=== PATIENT | female | born 1955 | race African-American/Black ===

== ENCOUNTER → 2016-04-24 | Outpatient (CLI) | payer OTHER ==
--- NOTE | 2016-04-24 14:02 | WOMENS IMAGING REPORT ---
EXAM DESCRIPTION: BILAT SCREENING MAMMO W/CAD COMPLETED DATE/TIME: 04/24/2016 9:51 am REASON FOR STUDY: BILAT SCREENING MAMMO (Z12.31 Z12.31 ENCNTR SCREEN MAMMOGRAM FOR MALIGNANT NEOPLA SM OF KEANU COMPARISON: 2008 to 2015 TECHNIQUE: Standard craniocaudal and mediolateral oblique views of each breast recorded using digita l acquisition. LIMITATIONS: None. FINDINGS: No masses, calcifications or architectural distortion. No areas of suspicion. Read with the assistance of CAD. .[facility] - R2 Cenova Version 1.3 .[facility] Imaging - R2 Cenova Version 1.3 .[facility] Imaging - R2 Cenova Version 2.4 .[facility] - R2 Cenova Version 2.4 .[facility] - R2 Crocheter Version 9.2 BREAST DENSITY: b. There are scattered areas of fibroglandular density. BIRAD: 1 NEGATIVE RECOMMENDATION: ROUTINE SCREENING COMMENT: PATIENT NOTIFIED BY LETTER. The [employer] recommends an annual screening mammogram for women aged 40 years or over. Each patient will receive a reminder prior to the anniversary date of her mammogram. The [employer] (ACR) has developed recommendations for screening MRI of the breast s in certain patient populations, to be used in conjunction with mammography. Breast MRI surveillanc e may be appropriate for women with more than 20% lifetime risk of developing breast cancer as deter mined by genetic testing, significant family history of the disease, or history of mantle radiation f or Hodgkins Disease. ACR Practice Guidelines 2008. TECHNICAL DOCUMENTATION: FINDING NUMBER: (1) ASSESSMENT: (1) JOB ID: [id number] [employer]- All Rights Reserved
== END ==
LOC: WI 09:24
PROVIDERS: ATTEND Specialist
DX: Z12.31 Encounter for screening mammogram for malignant neoplasm of breast (principal)
CPT/HCPCS: 77067; G0202

== ENCOUNTER → 2016-08-18 | Outpatient (CLI) | payer OTHER | LOC: RAD 15:18 | PROVIDERS: ATTEND Podiatrist Foot & Ankle Surgery | DX: M86.372 Chronic multifocal osteomyelitis, left ankle and foot (principal) | CPT/HCPCS: 82565; 73720; A9576 ==

== ENCOUNTER → 2016-10-18 | Outpatient (CLI) | payer OTHER ==
--- NOTE | 2016-10-18 10:12 | RADIOLOGY REPORT (SQ) ---
EXAM DESCRIPTION: MRI LT LOWER EXTREMITY COMBO COMPLETED DATE/TIME: 10/18/2016 9:40 am REASON FOR STUDY: OSTEOMYELITIS (M86.372) M86.372 CHRONIC MULTIFOCAL OSTEOMYELITIS, LEFT ANKLE AND RAUL COMPARISON: 08/18/2016. TECHNIQUE: Multiplanar imaging of the left forefoot to include T1-weighted, postcontrast T1-weighted , and T2-weighted images. CONTRAST TYPE AND DOSE: 10 mL Prohance. RENAL FUNCTION: Creatinine 0.9 LIMITATIONS: None. FINDINGS: BONE MARROW: Chronic deformity in the distal great toe metatarsal. Previously, mild edema was noted here. Current study suggests edema has essentially resolved. Mild deformity of the 2nd m etatarsal as well. Marrow signal in the remaining metatarsals and toes is generally normal. SOFT TISSUES: Soft tissue thickening with loss of the subcutaneous fat and superficial ulcer underlie s the great toe, centered at roughly the MTP joint. No drainable collections here. OTHER: No other significant finding. IMPRESSION: 1. Chronic soft tissue findings, plantar ulcer underlying the great toe MTP joint. Whil e there is deformity of the 1st and 2nd metatarsal heads, no suggestion of osteomyelitis (no progress celestino bone loss or worrisome edema) on today's study. TECHNICAL DOCUMENTATION: JOB ID: [id number] [employer]- All Rights Reserved
== END ==
LOC: RAD 07:49
PROVIDERS: ATTEND Podiatrist Foot & Ankle Surgery
DX: M86.372 Chronic multifocal osteomyelitis, left ankle and foot (principal)
CPT/HCPCS: 82565; 73720; A9576

== ENCOUNTER → 2017-05-31 | Outpatient (CLI) | payer OTHER ==
--- NOTE | 2017-05-31 14:25 | WOMENS IMAGING REPORT ---
EXAM DESCRIPTION: 3D SCREENING MAMMO BILAT COMPLETED DATE/TIME: 05/31/2017 12:07 pm REASON FOR STUDY: ROUTINE SCREENING; Z12.31 Z12.31 ENCNTR SCREEN MAMMOGRAM FOR MALIGNANT NEOPLASM O F KEANU COMPARISON: 2011 to 2016 TECHNIQUE: Standard craniocaudal and mediolateral oblique views of each breast recorded using digita l acquisition and breast tomosynthesis. LIMITATIONS: None. FINDINGS: No masses, calcifications or architectural distortion. No areas of suspicion. Read with the assistance of CAD. .[facility] - R2 Cenova Version 1.3 .[facility] Imaging - R2 Cenova Version 1.3 .[facility] Imaging - R2 Cenova Version 2.4 .[facility] [place] R2 Cenova Version 2.4 .[facility] - R2 [employer] Manager Version 9.2 IMPRESSION: NORMAL MAMMOGRAM. BIRADS 1. BREAST DENSITY: b. There are scattered areas of fibroglandular density. BIRAD: 1 NEGATIVE RECOMMENDATION: ROUTINE SCREENING COMMENT: The patient has been notified of the results by letter per SA requirements. Additional no tification policies are in place for contacting patient with suspicious or incomplete findings. Quality ID #225: The [employer] recommends an annual screening mammogram for women aged 40 years or over. This facility utilizes a reminder system to ensure that all patients receive reminder letters, and/or direct phone calls for appointments. This includes reminders for routine scr eening mammograms, diagnostic mammograms, or other Breast Imaging Interventions when appropriate. Th is patient will be placed in the appropriate reminder system. The [employer] (ACR) has developed recommendations for screening MRI of the breast s in certain patient populations, to be used in conjunction with mammography. Breast MRI surveillanc e may be appropriate for women with more than 20% lifetime risk of developing breast cancer as deter mined by genetic testing, significant family history of the disease, or history of mantle radiation f or Hodgkins Disease. ACR Practice Guidelines 2008. DBT Technology DBT is a type of tomographic mammography. With conventional mammography, overlapping breast tissue ma y make lesions difficult to detect, even with good compression. DBT uses an x-ray tube that rotates a round the breast, taking images at different angles. These images are then combined to create thin sl ices of the breast that the radiologist can view as a 3D reconstruction. The [employer] [place] unit can perform full-field digital mammograms (2D imaging); or DBT (3D imaging); or both, in a combination mode that quickly performs both the mammogram and the tomosynthesis scan while the breast is still compressed. PQRS 6045F: Fluoroscopic imaging is not utilized for breast tomosynthesis. TECHNICAL DOCUMENTATION: FINDING NUMBER: (1) ASSESSMENT: (1) JOB ID: [id number] [employer]- All Rights Reserved
== END ==
LOC: WI 10:59
PROVIDERS: ATTEND Specialist
DX: Z12.31 Encounter for screening mammogram for malignant neoplasm of breast (principal)
CPT/HCPCS: 77063; 77067

== ENCOUNTER → 2017-07-24 | Outpatient (CLI) | payer OTHER ==
--- NOTE | 2017-07-24 15:52 | RADIOLOGY REPORT (SQ) ---
EXAM DESCRIPTION: FOOT RIGHT COMPLETE COMPLETED DATE/TIME: 07/24/2017 3:10 pm REASON FOR STUDY: NON-PRS CHRONIC ULCER OTH PRT RIGHT FOOT W FAT LAYER EXPOSED L97.512 NON-PRS POKE IN PATRICIA ULCER OTH PRT RIGHT FOOT W FAT LAYER COMPARISON: None. NUMBER OF VIEWS: Three views. TECHNIQUE: AP, lateral and oblique radiographic images acquired of the right foot. LIMITATIONS: None. FINDINGS: MINERALIZATION: Normal. BONES: Hallux valgus with prominent bunion. Surgical changes involving the head of the 2nd metatarsa l. JOINTS: No effusions. SOFT TISSUES: A prominent soft tissue ulcer is seen overlying the 5th metatarsal phalangeal joint. N o evidence of osteomyelitis is seen. OTHER: No other significant finding. IMPRESSION: There is no evidence of osteomyelitis. Findings as described. TECHNICAL DOCUMENTATION: JOB ID: [id number] [employer]- All Rights Reserved Reading location - IP/workstation name: [email or web address]
== END ==
LOC: OD 14:53
PROVIDERS: ATTEND Preventive Medicine Undersea and Hyperbaric Medicine
DX: L97.512 Non-pressure chronic ulcer of other part of right foot with fat layer exposed (principal)

== ENCOUNTER → 2017-08-03 | Day surgery (SDC) | payer OTHER ==
[~2017-08-03] MED LIST: DAPTOMYCIN 500 MG in NORMAL SALINE 50 ML IV ONE; NORMAL SALINE 10 ML SDV (AFTER EACH USE) IV PRN; NORMAL SALINE 10 ML SDV (SCHEDULED) IV SCH
--- NOTE | 2017-08-03 12:07 | RADIOLOGY REPORT (SQ) ---
EXAM DESCRIPTION: PICC INSERTION; U/S GUIDE FOR VASCULAR ACCESS; FLUORO/CV PLACEMENT COMPLETED DATE/TIME: 08/03/2017 10:47 am REASON FOR STUDY: IV ANTIBIOTICS; IV ACCESS; IV ABX L97.512 NON-PRS CHRONIC ULCER OTH PRT RIGHT RAUL T W FAT LAYER E11.621 TYPE 2 DIABETES MELLITUS WITH FOOT ULCER COMPARISON: None. FLUOROSCOPY TIME: 29 seconds 2 images saved to PACS. TECHNIQUE: Fluoroscopic and ultrasound guided PICC placement. LIMITATIONS: None. PROCEDURE: After written consent and assessment were obtained, the patient was brought into the fluo roscopy room and place supine on the table. Ultrasound was used on the patient's left arm for PICC a ccess. The left arm was prepped and draped in a sterile fashion along with the ultrasound probe. The entry site was anesthetized with 1% lidocaine. A 21 gauge 7 cm needle was advanced through the skin a nd into the basilic vein under live ultrasound guidance. An ultrasound image was saved to PACS confi rming access site. A .018 guide wire was then inserted through the needle and into the venous system . The needle was the removed and an 11 blade scalpel was used to make a 1cm skin incision. A 5 fr pe el-away sheath was advanced over the wire and into the venous system. A measurement was then made usi ng the existing wire and live fluoroscopic guidance. The wire was then removed and the trimmed. The P ICC was advanced through the peel-away sheath and into the venous system. The peel-away sheath was re moved and the catheter was adhered to the patients arm with a stat lock. The catheter was then aspira jose and flushed and a sterile bandage was placed over the access site. A fluoroscopic spot image was saved to PACS confirming the catheter tip within the superior vena cava. IMPRESSION: SUCCESSFUL PLACEMENT OF A 5 FR DUAL LUMEN 42 CM PICC IN THE LEFT BASILIC VEIN. COMMENT: Patient medication list reviewed: Yes- Quality ID# 130:Eligible professional attests to doc umenting in the medical record they obtained, updated, or reviewed the patient's current medications. . Quality ID 145: Final reports for procedures using fluoroscopy that document radiation exposure jorge rex, or exposure time and number of fluorographic images (if radiation exposure indices are not avail able) Quality ID #76: The patient was prepped and draped using maximum sterile barrier technique including cap, mask, sterile gown, sterile gloves, a large sterile sheet, hand hygiene, and 2% Chlorhexidine fo r cutaneous antisepsis. When ultrasound is used, sterile ultrasound techniques are followed requiring sterile gel and sterile probes. TECHNICAL DOCUMENTATION: JOB ID: [id number] [employer]- All Rights Reserved Reading location - IP/workstation name: [facility]
[2017-08-03 13:02] VITALS: BP 131/72
== END ==
LOC: RAD 09:46
PROVIDERS: ATTEND Preventive Medicine Undersea and Hyperbaric Medicine
DX: L97.512 Non-pressure chronic ulcer of other part of right foot with fat layer exposed (principal); E11.621 Type 2 diabetes mellitus with foot ulcer
CPT/HCPCS: 96365; 36569; 77001; 76937; J0878; J1642

== ENCOUNTER → 2017-08-07 | Day surgery (SDC) | payer OTHER ==
--- NOTE | 2017-08-07 15:58 | RADIOLOGY REPORT (SQ) ---
EXAM DESCRIPTION: PICC LINE REPLACEMENT; FLUORO/CV PLACEMENT COMPLETED DATE/TIME: 08/07/2017 11:45 am REASON FOR STUDY: NON-PRS CHRONIC ULCER OTH PRT RIGHT FOOT W FAT LAYER EXPOSED (L97.512); PICC PULLE D OUT/REPLACEMENT L97.512 NON-PRS CHRONIC ULCER OTH PRT RIGHT FOOT W FAT LAYER COMPARISON: AP chest 12/03/2014 FLUOROSCOPY TIME: 18 seconds 1 digital chest image and 1 ultrasound images saved to PACS. TECHNIQUE: Fluoroscopic and ultrasound guided PICC placement. LIMITATIONS: None. PROCEDURE: After written consent and assessment were obtained, the patient was brought into the fluo roscopy room and place supine on the table. Ultrasound evaluation of potential access sites were perf ormed. After successfully identifying a patent left basilic, the left arm was prepped and draped in a sterile fashion along with the ultrasound probe. The entry site was anesthetized with 1% lidocaine. A 21 gauge 7 cm needle was advanced through the skin and into the basilic vein under live ultrasound guidance. An ultrasound image was saved to PACS confirming access site. A .018 guide wire was then inserted through the needle and into the venous system. The needle was the removed and an 11 blade sc alpel was used to make a 1cm skin incision. A 5 fr peel-away sheath was advanced over the wire and i nto the venous system. A measurement was then made using the existing wire and live fluoroscopic guid ance. The wire was then removed and the trimmed. The PICC was advanced through the peel-away sheath a nd into the venous system. The peel-away sheath was removed and the catheter was adhered to the patie nts arm with a stat lock. The catheter was then aspirated and flushed and a sterile bandage was place d over the access site. A fluoroscopic spot image was saved to PACS confirming the catheter tip with in the superior vena cava. IMPRESSION: SUCCESSFUL PLACEMENT OF A 5 FR DUAL LUMEN 42 CM PICC IN THE left basilic VEIN. COMMENT: Patient medication list reviewed: Yes- Quality ID# 130:Eligible professional attests to doc umenting in the medical record they obtained, updated, or reviewed the patient's current medications. . Quality ID 145: Final reports for procedures using fluoroscopy that document radiation exposure jorge rex, or exposure time and number of fluorographic images (if radiation exposure indices are not avail able) Quality ID #76: The patient was prepped and draped using maximum sterile barrier technique including cap, mask, sterile gown, sterile gloves, a large sterile sheet, hand hygiene, and 2% Chlorhexidine fo r cutaneous antisepsis. When ultrasound is used, sterile ultrasound techniques are followed requiring sterile gel and sterile probes. TECHNICAL DOCUMENTATION: JOB ID: [id number] [employer]- All Rights Reserved Reading location - IP/workstation name: [id number]
== END ==
LOC: RAD 10:53
PROVIDERS: ATTEND Nurse Practitioner
DX: L97.512 Non-pressure chronic ulcer of other part of right foot with fat layer exposed (principal); E11.621 Type 2 diabetes mellitus with foot ulcer
CPT/HCPCS: 36584; 77001; C1769; J1642

== ENCOUNTER → 2017-08-20 | Outpatient (CLI) | payer OTHER ==
--- NOTE | 2017-08-20 14:23 | RADIOLOGY REPORT (SQ) ---
EXAM DESCRIPTION: FOOT RIGHT COMPLETE COMPLETED DATE/TIME: 08/20/2017 2:11 pm REASON FOR STUDY: NON-PRS CHRONIC ULCER OTH PRT RIGHT FOOT W NECROSIS OF BONE L97.514 NON-PRS CHRON IC ULCER OTH PRT RIGHT FOOT W NECROSIS COMPARISON: 07/24/2017 right foot films NUMBER OF VIEWS: Three views. TECHNIQUE: AP, lateral and oblique radiographic images acquired of the right foot. LIMITATIONS: None. FINDINGS: MINERALIZATION: Overall normal bone density BONES: There is demineralization of the right 5th metatarsal head and base 5th toe proximal phalanx f rom osteomyelitis. Adjacent soft tissue ulcer is present measuring about 2.5 cm in diameter. 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 Benign periostea l new bone along the base of the 4th metatarsal. JOINTS: Osteoarthritis with hallux valgus deformity 1st MTP joint SOFT TISSUES: Soft tissue ulcer 2.5 cm in diameter along the lateral aspect of the 5th metatarsophala ngeal joint. No radiopaque foreign body. OTHER: No other significant finding. IMPRESSION: Demineralization of the right 5th metatarsal head and base 5th toe proximal phalanx from osteomyelitis. Adjacent soft tissue ulcer is present TECHNICAL DOCUMENTATION: JOB ID: [id number]- All Rights Reserved Reading location - IP/workstation name: [facility]
== END ==
LOC: OD 13:43
PROVIDERS: ATTEND Preventive Medicine Undersea and Hyperbaric Medicine
DX: L97.514 Non-pressure chronic ulcer of other part of right foot with necrosis of bone (principal)

== ENCOUNTER 2017-08-22 08:37 | Day surgery (SDC) | payer OTHER ==
[2017-08-22] MEDS ORDERED: BUPIVACAINE HCL 0.5 % INJ/PF 30 ML SDV ONE (08:53)
[2017-08-22] MEDS ORDERED: LIDOCAINE 2% INJ (20 MG/ML) 20 ML MDV ONE (08:53)
[2017-08-22] MEDS ORDERED: BACITRACIN INJ 50,000 UNIT VIAL ONE (08:54)
[2017-08-22] MEDS ORDERED: NORMAL SALINE INJ/PF 0.9% 10 ML SDV ONE (08:54)
[2017-08-22] MEDS ORDERED: POLYMYXIN B SULFATE INJ 500000 UNIT VIAL ONE (08:54)
[2017-08-22] MEDS ORDERED: MIDAZOLAM 2 MG/2 ML INJ ONE ×2 (08:57→10:14)
[2017-08-22] MEDS ORDERED: ONDANSETRON HCL INJ/PF 4 MG/2 ML SDV ONE (08:57)
[2017-08-22] MEDS ORDERED: DEXAMETHASONE SOD PHOSPHATE INJ 4 MG/1 ML VIAL ONE (08:57)
[2017-08-22] MEDS ORDERED: PROPOFOL INJ 200 MG/20 ML VIAL IV ONE ×3 (08:57→11:33)
[2017-08-22] MEDS ORDERED: FENTANYL CITRATE INJ/PF 100 MCG/2 ML AMPUL ONE ×2 (08:57→11:19)
[2017-08-22] MEDS ORDERED: LIDOCAINE 1%/EPINEPHRINE INJ 20 ML VIAL ONE (09:00)
--- NOTE | 2017-08-22 12:11 | RADIOLOGY REPORT (SQ) ---
EXAM DESCRIPTION: NO CHG FLUORO; FOOT RIGHT 2 VIEWS COMPLETED DATE/TIME: 08/22/2017 11:34 am REASON FOR STUDY: AMPUTATION 5TH PARTIAL RAY RESECTION RIGHT FOOT COMPARISON: Foot radiographs 08/20/2017. FINDINGS: 2 images of the lateral aspect of the foot, side not indicated. Images reveal resection o f the majority of the 5th ray. Fluoro time 3 seconds. TECHNICAL DOCUMENTATION: JOB ID: [id number] Reading location - IP/workstation name: [email or web address]
--- NOTE | 2017-08-22 12:11 | RADIOLOGY REPORT (SQ) ---
EXAM DESCRIPTION: NO CHG FLUORO; FOOT RIGHT 2 VIEWS COMPLETED DATE/TIME: 08/22/2017 11:34 am REASON FOR STUDY: AMPUTATION 5TH PARTIAL RAY RESECTION RIGHT FOOT COMPARISON: Foot radiographs 08/20/2017. FINDINGS: 2 images of the lateral aspect of the foot, side not indicated. Images reveal resection o f the majority of the 5th ray. Fluoro time 3 seconds. TECHNICAL DOCUMENTATION: JOB ID: [id number] Reading location - IP/workstation name: [email or web address]
--- NOTE | 2017-08-22 12:55 | SURGICARE OPERATIVE REPORT E ---
[facility] Operative Report NAME: ROSA FIGUEROA AGE: 61Y DATE OF SURGERY: 08/22/2017 ROOM: OPERATING SURGEON: NAM SHANE DPM REGISTERED NURSE MIDWIFE: ALEC DAVID DPM PREOPERATIVE DIAGNOSIS: Osteomyelitis of the fifth metatarsal and fifth toe of the right foot. POSTOPERATIVE DIAGNOSIS: Osteomyelitis of the fifth metatarsal and fifth toe of the right foot. PROCEDURE PERFORMED: Amputation of the fifth toe with partial ray resection of the fifth metatarsal. DESCRIPTION OF PROCEDURE: On 08/22/2017, the patient was admitted to [facility] with complaints of infected right foot. The patient was taken to the operating room where the following procedure was performed. Following induction of sedation, regional and local anesthesia, the patient's right foot and leg were prepped and draped in a sterile manner. Attention was directed to the lateral aspect of the patient's right foot. There was noted to be approximately a 4 cm diameter ulceration fifth metatarsal head with an open draining diabetic foot ulcer. At that time, incision was made on the lateral aspect of the foot overlying the fifth metatarsal shaft. Incision started approximately mid shaft and extended distally to the ulceration sub-fifth met head. All bleeding vessels were clamped, ligated, and bovied as necessary for hemostasis. Dissection was carried down to the level of the fifth metatarsal, which was freed from its surrounding soft tissue attachments. Utilizing a sagittal saw, The metatarsal was osteotomized approximately 2 cm distal from the base and the distal segment of bone was removed. Incision was made circumferentially around the fifth toe. It was then disarticulated en toto. The wound was then debrided of all necrotic tissue until there was good capillary bleeding throughout. At that time, the area was flushed with copious amounts of sterile saline, and utilizing clean instrumentation, specimen about the remaining stump of the fifth metatarsal was then obtained. One specimen to microbiology for culture and another specimen sent to pathology for analysis. At that time, dissection was further carried out to remove any remaining necrotic tissue and to debulk the skin margins, which were likewise freshened with sharp dissection. All bleeding vessels were clamped and bovied as necessary for hemostasis. The area was then flushed with copious amounts of sterile antibiotic solution and inspected for remaining soft tissue osseous debris with none being noted. At that time, the wound was closed primarily as much as possible utilizing a combination of simple suture, interrupted vertical mattress suture, and interrupted horizontal mattress suture, in combination as needed utilizing the 4-0 nylon. A sterile dressing consisting of Henrik silk, ABD, 4 x 4's, Kerlix, Conform, and Coban was applied to the patient's right foot. The patient tolerated surgery and anesthesia well and was taken to the recovery room where further monitored by the Anesthesia Department. DICTATING PHYSICIAN: NAM SHANE DPM [id number] PHY#: [id number] ID: [id number] JOB#: [id number] ACCT: [id number] cc:NAM SHANE DPM > MTDD
--- NOTE | 2017-09-02 12:15 | SURGICARE DISCHARGE SUMMARY E ---
[facility] Discharge Summary NAME: ROSA FIGUEROA AGE: 61Y ADMITTED: 08/22/2017 DISCHARGED: 08/22/2017 DATE OF SURGERY: 08/22/2017 OPERATING SURGEON: Nam Maldonado DPM ELECTROTYPE CASTER: Aneta Kohli DPM POSTOPERATIVE DIAGNOSIS: Osteomyelitis of the right fifth toe and right fifth metatarsal. PROCEDURE PERFORMED: Amputation of the fifth toe with partial ray resection of fifth metatarsal, right foot. HOSPITAL COURSE: On 08/22/2017, patient was admitted to [facility] with complaints of an open, draining diabetic foot ulcer. Patient was taken to the operating room, where the above procedure was performed. Patient tolerated surgery and anesthesia well, and was later discharged from [facility] with prescriptions for Vicodin 5 mg, in a postop surgical shoe. POSTOPERATIVE INSTRUCTIONS: To stay off her foot and keep it elevated. She was given a followup [facility] DICTATING PHYSICIAN: NAM MALDONADO DPM [id number] PHY#: [id number] ID: [id number] JOB#: [id number] ACCT: [id number] cc:NAM MALDONADO DPM >
== END 2017-08-22 12:15 | disposition home or self-care (01) ==
LOC: SC 08:37
PROVIDERS: ATTEND Preventive Medicine Undersea and Hyperbaric Medicine
DX: M86.671 Other chronic osteomyelitis, right ankle and foot (principal); B95.7 Other staphylococcus as the cause of diseases classified elsewhere; B95.2 Enterococcus as the cause of diseases classified elsewhere; B96.89 Other specified bacterial agents as the cause of diseases classified elsewhere; E11.9 Type 2 diabetes mellitus without complications; I10 Essential (primary) hypertension; D64.9 Anemia, unspecified; Z79.82 Long term (current) use of aspirin; Z79.899 Other long term (current) drug therapy; Z79.84 Long term (current) use of oral hypoglycemic drugs; Z88.0 Allergy status to penicillin; Z88.8 Allergy status to other drugs, medicaments and biological substances; Z87.891 Personal history of nicotine dependence
CPT/HCPCS: 87070; 87205; 82962; 87075; 87077; 87186; 88305 ×2; 88311; 73620; 28810; J2250; J3490 ×6; J1100; J3010; J2405; J2704; 01480

== ENCOUNTER → 2017-08-30 | Outpatient (CLI) | payer OTHER ==
--- NOTE | 2017-08-30 13:27 | RADIOLOGY REPORT (SQ) ---
EXAM DESCRIPTION: CHEST PA/LATERAL COMPLETED DATE/TIME: 08/30/2017 12:24 pm REASON FOR STUDY: PNEUMOTHORAX, UNSPECIFIED COMPARISON: AP chest 12/03/2014 EXAM PARAMETERS: NUMBER OF VIEWS: two views TECHNIQUE: Digital Frontal and Lateral radiographic views of the chest acquired. RADIATION DOSE: NA LIMITATIONS: none FINDINGS: LUNGS AND PLEURA: No opacities, masses or pneumothorax. No pleural effusion. MEDIASTINUM AND HILAR STRUCTURES: No masses or contour abnormalities. HEART AND VASCULAR STRUCTURES: Heart normal size. No evidence for failure. BONES: No acute findings. HARDWARE: Left PICC line tip superior vena cava. Clips right upper quadrant post cholecystectomy. OTHER: No other significant finding. IMPRESSION: NO SIGNIFICANT RADIOGRAPHIC FINDING IN THE CHEST. TECHNICAL DOCUMENTATION: JOB ID: [id number] [employer]- All Rights Reserved Reading location - IP/workstation name: [email or web address]
== END ==
LOC: OD 11:59
PROVIDERS: ATTEND Nurse Practitioner
DX: J93.9 Pneumothorax, unspecified (principal)
CPT/HCPCS: 71046

== ENCOUNTER → 2017-09-26 | Outpatient (CLI) | payer OTHER ==
--- NOTE | 2017-09-26 15:17 | RADIOLOGY REPORT (SQ) ---
EXAM DESCRIPTION: FOOT RIGHT COMPLETE COMPLETED DATE/TIME: 09/26/2017 1:43 pm REASON FOR STUDY: CHRONIC MULTIFOCAL OSTEOMYELITIS, RT ANKLE FOOT,TYPE 2 DIABETES MELLITUS E11.621 TYPE 2 DIABETES MELLITUS WITH FOOT ULCER M86.371 CHRONIC MULTIFOCAL OSTEOMYELITIS, RIGHT ANKLE AND FO COMPARISON: None. NUMBER OF VIEWS: Three views. TECHNIQUE: AP, lateral and oblique radiographic images acquired of the right foot. LIMITATIONS: None. FINDINGS: MINERALIZATION: Normal. BONES: Patient is status post amputation of the 5th digit at the level of the mid 5th metatarsal. Th ere is some bony deformity of the distal end of the 2nd metatarsal which may be related to previous t rauma. No acute fracture is identified. There is no plain film evidence for bony involvement by ost eomyelitis. There is some deformity of the proximal 5th metatarsal with a separate calcific density being identified which may be related to an old avulsion type fracture. JOINTS: No effusions. SOFT TISSUES: Faint soft tissue calcifications are identified in the soft tissues distal to the remai andriy proximal 5th metatarsal. There is some soft tissue deformity along the margins of the soft tiss ues distal to the remaining 5th metatarsal which I cannot exclude a superficial ulcerations clinical correlation is recommended. . No definite subcutaneous air is identified. OTHER: No other significant finding. IMPRESSION: Status post amputation of the 5th digit at the level of the mid 5th metatarsal. Other f indings as noted above. TECHNICAL DOCUMENTATION: JOB ID: [id number] [employer]- All Rights Reserved Reading location - IP/workstation name: [email or web address]
== END ==
LOC: RAD 13:23
PROVIDERS: ATTEND Preventive Medicine Undersea and Hyperbaric Medicine
DX: E11.621 Type 2 diabetes mellitus with foot ulcer (principal); M86.371 Chronic multifocal osteomyelitis, right ankle and foot

== ENCOUNTER → 2017-10-16 | Outpatient (CLI) | payer OTHER ==
--- NOTE | 2017-10-18 08:06 | XCELERA REPORT ---
[address] [address] Lower Extremity Venous Evaluation Name: ROSA FIGUEROA Age: 62 yrs Gender: Female : 1955 Patient Status: Outpatient Patient Location: Study Date: 10/16/2017 02:08 PM Procedure: A bilateral duplex scan of the lower extremity veins was performed. The evaluation included responses to compression and other maneuvers with patient in the supine and standing positions to assess venous insufficiency. Reason For Study: ULCER Ordering Physician: NAM SHANE Performed By: Terrell Garcia Right Sided Venous Evaluation Deep venous system evaluatiion shows patent veins with no obstruction or significant reflux identified. Sapheno Femoral junction: no reflux. Femoral vein reflux: no reflux. Greater Saphenous vein, Proximal thigh: reflux: no reflux. Greater Saphenous vein, Distal thigh: reflux: no reflux. Greater Saphenous vein, Proximal below knee: reflux: no reflux. No significant Perforators identified. Left Sided Venous Evaluation Deep venous system evaluatiion shows patent veins with no obstruction or significant reflux identified. Sapheno Femoral junction: no reflux. Femoral vein reflux: no reflux. Greater Saphenous vein, Proximal thigh: reflux: no reflux. Greater Saphenous vein, Distal thigh: reflux: no reflux. Greater Saphenous vein, Proximal below knee: reflux: no reflux. No significant Perforators identified. Interpretation Summary No duplex evidence of DVT or obstruction in the bilateral lower extremities. No significant deep or superficial reflux seen. : NAM SHANE Lennox
--- NOTE | 2017-10-18 13:23 | XCELERA REPORT ---
[address] [address] Lower Extremity Arterial Evaluation Name: ROSA FIGUEROA Age: 62 yrs Gender: Female : 1955 Patient Status: Outpatient Patient Location: Study Date: 10/16/2017 01:35 PM Procedure: A color flow and duplex scan of the lower extremity arteries was performed bilaterally with velocity and waveform anaylsis. Ankle brachial indicies performed. Reason For Study: ULCER Ordering Physician: NAM SHANE Performed By: Terrell Garcia Measurements and Calculations Right Left WATCH INSPECTOR PSV 179.9 146.9 cm/sec Prox PFA PSV -80.0 -96.8 cm/sec Prox SFA PSV -109.7 -96.5 cm/sec Mid SFA PSV -101.2 -107.5 cm/sec Dist SFA PSV -91.0 -93.2 cm/sec Prox Pop A PSV 138.3 95.9 cm/sec Dist YEISON PSV 34.2 18.9 cm/sec Prox PHARMACY HELPER PSV 21.0 29.7 cm/sec Dist PHARMACY HELPER PSV 0.20 0.20 cm/sec Asim Pedis PSV 70.7 -230.1 cm/sec Right Side Arterial Evaluation Normal velocity and biphasic waveforms noted from the Common Femoral artery to the Popliteal artery . Triphasic with high velocity in the Deep Femoral. Monophasic with increased velocities in the Anterior Tibial. Distal occlusion in the Posterior Tibial. 0-19% stenosis at the Deep Femoral artery, on mixed criteria. Severe sequential disease. Ankle Brachial index was not obtainable, non compressible. Left Side Arterial Evaluation Normal to increased velocity and triphasic waveforms noted in the Common Femoral artery to the Popliteal artery. Markedly increased velocities. Monophasic Anterior Tibial with increased velocity. Occluded Posterior Tibial, distally. . 0-19% stenosis at the Common Femoral artery, mixed criteria. with severe multi level distal disease. Ankle Brachial index obtainable due to non compressibility. Interpretation Summary Severe hemodynamically significant lesions in the bilateral lower extremities, on duplex imaging, at rest. Multilevel areas of stenosis suggested by high velocities, as noted. : NAM SHANE > Julian Montes
== END ==
LOC: SP 11:08
PROVIDERS: ATTEND Preventive Medicine Undersea and Hyperbaric Medicine
DX: E11.622 Type 2 diabetes mellitus with other skin ulcer (principal); L97.512 Non-pressure chronic ulcer of other part of right foot with fat layer exposed
CPT/HCPCS: 93922; 93925; 93970

== ENCOUNTER → 2017-11-02 | Outpatient (CLI) | payer OTHER ==
--- NOTE | 2017-11-02 15:06 | RADIOLOGY REPORT (SQ) ---
EXAM DESCRIPTION: FOOT RIGHT COMPLETE COMPLETED DATE/TIME: 11/02/2017 2:47 pm REASON FOR STUDY: CHR MULTIFOCAL OSTEOMYELITIS, RT ANKLE FOOT,TYPE 2 DM WITH FOOT ULCER COMPARISON: 09/26/2017. NUMBER OF VIEWS: Three views right foot. LIMITATIONS: None. FINDINGS: Chronic changes of amputation along the proximal pinky metatarsal. Adjacent heterotopic b one. No aggressive bone lysis here. Soft tissue lucency consistent with ulcer underlying the ball of the foot. Potential fracture and de struction along the base of the proximal phalanx 4th toe. Regional wound/soft tissue artifact signif icantly limits assessment, however. OTHER: No other significant finding. IMPRESSION: Plantar wound with suspicion of osteomyelitis at the level of the 4th toe MP joint. Freire iting artifact. TECHNICAL DOCUMENTATION: JOB ID: [id number] Reading location - IP/workstation name: [email or web address]
== END ==
LOC: OD 13:57
PROVIDERS: ATTEND Nurse Practitioner
DX: E11.621 Type 2 diabetes mellitus with foot ulcer (principal); M86.371 Chronic multifocal osteomyelitis, right ankle and foot

== ENCOUNTER → 2017-11-17 | Outpatient (CLI) | payer OTHER ==
[2017-11-17 12:14] LABS: ABSOLUTE BASOPHILS # (AUTO) 0.1 10^3/uL (0.0-0.2); ABSOLUTE EOSINOPHILS # (AUTO) 0.2 10^3/uL (0.0-0.6); ABSOLUTE LYMPHOCYTES (AUTO) 3.1 10^3/uL (0.5-4.7); ABSOLUTE MONOCYTES (AUTO) 0.6 10^3/uL (0.1-1.4); ABSOLUTE NEUT (AUTO) 4.9 10^3/uL (1.7-8.2); BASOPHILS % (AUTO) 0.7 % (0-2); EOSINOPHILS % (AUTO) 2.6 % (0-6); HEMATOCRIT 29.8 % (36.0-47.0); HEMOGLOBIN 9.5 g/dL (12.0-15.5); MEAN CORPUSCULAR HEMOGLOBIN 25.8 pg (27.0-33.4); MEAN CORPUSCULAR HGB CONC 31.9 g/dL (32.0-36.0); MEAN CORPUSCULAR VOLUME 81 fl (80-97); MONOCYTES % (AUTO) 6.7 % (3-13); PLATELET COUNT 497 10^3/uL (150-450); RED BLOOD COUNT 3.69 10^6/uL (3.72-5.28); RED CELL DISTRIBUTION WIDTH 17.1 % (11.5-14.0); TOTAL CELLS COUNTED % (AUTO) 100 %; WHITE BLOOD COUNT 8.9 10^3/uL (4.0-10.5)
[2017-11-17 12:37] LABS: ALANINE AMINOTRANSFERASE 11 U/L (9-52); ALBUMIN 3.7 g/dL (3.5-5.0); ALKALINE PHOSPHATASE 69 U/L (38-126); ANION GAP 15 (5-19); ASPARTATE AMINO TRANSFERASE 16 U/L (14-36); BILIRUBIN,DIRECT 0.2 mg/dL (0.0-0.4); BILIRUBIN,TOTAL 0.2 mg/dL (0.2-1.3); BLOOD UREA NITROGEN 13 mg/dL (7-20); C-REACTIVE PROTEIN 12.1 mg/L (<10.0); CALCIUM 9.5 mg/dL (8.4-10.2); CARBON DIOXIDE 21 mmol/L (22-30); CHLORIDE 103 mmol/L (98-107); GLUCOSE 209 mg/dL (75-110); POTASSIUM 4.6 mmol/L (3.6-5.0); SODIUM 138.9 mmol/L (137-145); TOTAL PROTEIN 7.8 g/dL (6.3-8.2)
[2017-11-17 12:51] LABS: ERYTHROCYTE SEDIMENTATION RATE 115 mm/hr (0-30)
--- NOTE | 2017-11-17 14:10 | RADIOLOGY REPORT (SQ) ---
EXAM DESCRIPTION: FOOT RIGHT COMPLETE COMPLETED DATE/TIME: 11/17/2017 12:28 pm REASON FOR STUDY: M86.371, L97.514, E11.621 CHRONIC MULITFOCAL OSTEOMYELITIS RIGHT ANKLE/FOOT M86.37 1 CHRONIC MULTIFOCAL OSTEOMYELITIS, RIGHT ANKLE AND FO L97.514 NON-PRS CHRONIC ULCER OTH PRT RIGHT FOOT W NECROSIS E11.621 TYPE 2 DIABETES MELLITUS WITH FOOT ULCER COMPARISON: 11/02/2017 NUMBER OF VIEWS: Three views. TECHNIQUE: AP, lateral and oblique radiographic images acquired of the right foot. LIMITATIONS: None. FINDINGS: Since the prior, demineralization is evident at the heads of the 3rd and 4th metatarsals. Suspected pathologic fracture proximal 4th phalanx. Stable periosteal reaction in the surgical bed status post partial amputation of the 5th metatarsal. Swelling and subcutaneous gas at the level of the 4th metatarsal head. No foreign body identified. IMPRESSION: Acute osteomyelitis heads of the 3rd and 4th metatarsals. TECHNICAL DOCUMENTATION: JOB ID: [id number] [employer]- All Rights Reserved Reading location - IP/workstation name: [email or web address]
== END ==
LOC: RAD 11:35
PROVIDERS: ATTEND Preventive Medicine Undersea and Hyperbaric Medicine
DX: E11.621 Type 2 diabetes mellitus with foot ulcer (principal); L97.514 Non-pressure chronic ulcer of other part of right foot with necrosis of bone; E11.69 Type 2 diabetes mellitus with other specified complication; M86.371 Chronic multifocal osteomyelitis, right ankle and foot
CPT/HCPCS: 36415; 80053; 83036; 85025; 85652; 86140

== ENCOUNTER → 2017-11-17 | Outpatient (CLI) | payer OTHER ==
--- NOTE | 2017-11-18 10:16 | RADIOLOGY REPORT (SQ) ---
EXAM DESCRIPTION: MRI RT LOWER EXTREMITY WITHOUT COMPLETED DATE/TIME: 11/17/2017 12:58 pm REASON FOR STUDY: NON PRESSURE CHRONIC ULCER OR RIGHT FOOT L97.514 NON-PRS CHRONIC ULCER OTH PRT RI GHT FOOT W NECROSIS COMPARISON: None. TECHNIQUE: Multiplanar imaging of the right forefoot to include fat and fluid sensitive sequences. LIMITATIONS: None. FINDINGS: BONE MARROW: There is increased T2 signal and corresponding decreased T1 signal in the hea ds of the 3rd and 4th metatarsals, proximal 3rd phalanx, proximal 4th phalanx, and within the stump o f the 5th metatarsal status post amputation just proximal to midshaft. Superior subluxation 4th meta tarsophalangeal joint. SOFT TISSUES: Plantar ulcer over the lateral aspect of the forefoot. No soft tissue abscess. OTHER: No other significant finding. IMPRESSION: Osteomyelitis 3rd and 4th metatarsals, proximal 3rd and 4th phalanges, stump of the 5th metatarsal. TECHNICAL DOCUMENTATION: JOB ID: [id number] [employer]- All Rights Reserved Reading location - IP/workstation name: [email or web address]
== END ==
LOC: RAD 12:03
PROVIDERS: ATTEND Preventive Medicine Undersea and Hyperbaric Medicine
DX: E11.621 Type 2 diabetes mellitus with foot ulcer (principal); L97.514 Non-pressure chronic ulcer of other part of right foot with necrosis of bone; E11.69 Type 2 diabetes mellitus with other specified complication; M86.371 Chronic multifocal osteomyelitis, right ankle and foot

== ENCOUNTER 2017-11-20 10:45 | Day surgery (SDC) | payer OTHER ==
[~2017-11-20 10:45] MED LIST changes: +BUPIVACAINE HCL 0.5 % INJ/PF 30 ML SDV ONE; -DAPTOMYCIN 500 MG in NORMAL SALINE 50 ML IV ONE; +LEVOFLOXACIN 750 MG/D5W RTU 750 MG/150 ML RTUPB IV PRN; +LIDOCAINE 2% INJ (20 MG/ML) 20 ML MDV ONE; -NORMAL SALINE 10 ML SDV (AFTER EACH USE) IV PRN; -NORMAL SALINE 10 ML SDV (SCHEDULED) IV SCH
[2017-11-20] MEDS: TOBRAMYCIN SULFATE INJ 1.2 GM PWDR VIAL MC PRN ×2 (12:15→13:00)
[2017-11-20] MEDS ORDERED: FENTANYL CITRATE INJ/PF 100 MCG/2 ML AMPUL ONE ×2 (12:20→14:07)
[2017-11-20] MEDS ORDERED: DIPHENHYDRAMINE HCL 50 MG/ML VIAL ONE (12:20)
[2017-11-20] MEDS ORDERED: MIDAZOLAM 2 MG/2 ML INJ ONE ×2 (12:20→14:07)
[2017-11-20] MEDS ORDERED: PROPOFOL INJ 200 MG/20 ML VIAL IV ONE (12:21)
[2017-11-20] MEDS ORDERED: WATER FOR INJECTION,STERILE 10 ML SDV ONE (12:53)
[2017-11-20] MEDS ORDERED: LIDOCAINE 1%/EPINEPHRINE INJ 20 ML VIAL ONE (13:29)
[2017-11-20] MEDS: NORMAL SALINE INJ/PF 0.9% 10 ML SDV ONE ×2 (14:00)
[2017-11-20] MEDS: POLYMYXIN B SULFATE INJ 500000 UNIT VIAL ONE ×2 (14:00)
[2017-11-20] MEDS: BACITRACIN INJ 50,000 UNIT VIAL ONE ×2 (14:00)
--- NOTE | 2017-11-20 15:26 | RADIOLOGY REPORT (SQ) ---
EXAM DESCRIPTION: TOE RIGHT; NO CHG FLUORO COMPLETED DATE/TIME: 11/20/2017 3:16 pm REASON FOR STUDY: AMPUTATION OF TOES/ BONE RESECTION 5TH METATARSAL M86.471 CHRONIC OSTEOMYELITIS W DRAINING SINUS, RIGHT ANKLE COMPARISON: None. FLUOROSCOPY TIME: 16 seconds 1 images saved to PACS. TECHNIQUE: Intra-operative images acquired during surgical procedure to evaluate progress. NUMBER OF IMAGES: 1 LIMITATIONS: None. FINDINGS: Single image centered over lateral metatarsals. Antibiotic beads overlying the metatarsal stumps. IMPRESSION: IMAGE(S) OBTAINED DURING PROCEDURE. COMMENT: Quality ID 145: Final reports for procedures using fluoroscopy that document radiation exp osure indices, or exposure time and number of fluorographic images (if radiation exposure indices are not available) Please consult full operative report of the attending physician for description of the procedure. TECHNICAL DOCUMENTATION: JOB ID: [id number] [employer]- All Rights Reserved Reading location - IP/workstation name: [email or web address]
--- NOTE | 2017-11-20 15:26 | RADIOLOGY REPORT (SQ) ---
EXAM DESCRIPTION: TOE RIGHT; NO CHG FLUORO COMPLETED DATE/TIME: 11/20/2017 3:16 pm REASON FOR STUDY: AMPUTATION OF TOES/ BONE RESECTION 5TH METATARSAL M86.471 CHRONIC OSTEOMYELITIS W DRAINING SINUS, RIGHT ANKLE COMPARISON: None. FLUOROSCOPY TIME: 16 seconds 1 images saved to PACS. TECHNIQUE: Intra-operative images acquired during surgical procedure to evaluate progress. NUMBER OF IMAGES: 1 LIMITATIONS: None. FINDINGS: Single image centered over lateral metatarsals. Antibiotic beads overlying the metatarsal stumps. IMPRESSION: IMAGE(S) OBTAINED DURING PROCEDURE. COMMENT: Quality ID 145: Final reports for procedures using fluoroscopy that document radiation exp osure indices, or exposure time and number of fluorographic images (if radiation exposure indices are not available) Please consult full operative report of the attending physician for description of the procedure. TECHNICAL DOCUMENTATION: JOB ID: [id number] [employer]- All Rights Reserved Reading location - IP/workstation name: [email or web address]
--- NOTE | 2017-11-20 17:16 | SURGICARE OPERATIVE REPORT E ---
[facility] Operative Report NAME: ROSA FIGUEROA AGE: 62Y DATE OF SURGERY: 11/20/2017 ROOM: PREOPERATIVE DIAGNOSIS: OSTEOMYELITIS OF 3RD AND 4TH METATARSOPHALANGEAL JOINTS AND POSSIBLE RECURRENCE OF OSTEOMYELITIS 5TH METATARSAL SHAFT AND BALL OF THE RIGHT FOOT. POSTOPERATIVE DIAGNOSIS: OSTEOMYELITIS OF 3RD AND 4TH METATARSOPHALANGEAL JOINTS AND POSSIBLE RECURRENCE OF OSTEOMYELITIS 5TH METATARSAL SHAFT AND BALL OF THE RIGHT FOOT. OPERATION: Amputation of the 2nd and 3rd toes through the metatarsophalangeal joint with partial excision of the 3rd and 4th metatarsals, and excision of ulceration on the lateral aspect of the right foot with partial excision of the 5th metatarsal and with insertion of Osteoset antibiotic beads. SURGEON: NAM SHANE DPM PAYLOADER MACHINE OPERATOR: Aneta Kohli DPM INDICATION: On 11/20/2017, the patient was admitted to [facility] with complaint of infection of her right foot. PROCEDURE: The patient was taken to the operating room where, following induction of intravenous sedation and regional local anesthesia, the patient's right foot and leg were prepped and draped in the usual sterile manner. Surgical timeout was performed, verifying preoperative antibiotics, the patient's extremity, the procedure to be performed, all staff agreed with no variations. Attention was turned to the patient's right foot, where there was noted to be a 6cm x 4cm full depth ulceration on the plantar aspect of the forefoot underlying the 3rd and 4th metatarsal. There is ulceration on the medial aspect of the 4th toe with mostly necrotic tissue. It was felt at this time that based on radiological evidence and MR studies, that the patient's 3rd and 4th toes with the distal portions of 3rd and 4th metatarsal shafts needed to be excised, and a portion of the 5th metatarsal also examined and removed as needed for any recurrence of infection. At that time, attention was directed to the patient's 4th toe. Incision was circumferential and made around the toe, removing it in toto at the MRP joint. Similar procedure was performed on the 3rd toe. Dissection was carried down to the 3rd and 4th metatarsal heads. All bleeding vessels were clamped, ligated, and Bovied as necessary for hemostasis. The 4th metatarsal head was noted to be detached from the distal portion of the shaft, and it was removed from the wound in total with a hemostat. The 3rd metatarsal was noted to be more intact, but the articular cap was delaminating. The 3rd metatarsal was then osteotomized proximal to the articular surface, removing enough bone until a good solid bone surface was obtained; likewise, debridement of the 4th metatarsal was performed until solid bone was obtained. The area was flushed with copious amounts of sterile antibiotic solution, inspected for any remaining soft tissue or osseous debris, which was removed when found. Fluoroscopic studies were performed and additional bone was resected as needed. The wound was packed and attention was directed to the lateral aspect of the patient's right forefoot overlying the 5th metatarsal shaft. There was noted to be a 0.5 cm diameter open wound. It was sharply excised. Incision was carried down to the 5th metatarsal, which was then exposed. Utilizing fluoroscopic study, the distal portion of the shaft was identified and with rongeur was removed. There was noted to be heterotrophic bone in and around the distal stump of the 5th metatarsal. This was then sharply and bluntly dissected as necessary, removing as much of the hypertrophic bone as possible. Fluoroscopic studies were obtained and it was felt that correction was adequate at this time. All the wounds were flushed with copious amounts of sterile saline. Gloving and instrumentation were changed by utilizing sterile gloves and new clean sterile instrumentation. Bone specimens were then obtained from the 3rd, 4th, and 5th metatarsals utilizing rongeur for Pathology and for Microbiology. At that time, all of the wounds were then dissected of any necrotic or infected soft tissue as needed and to debulk the area of the incisions, to facilitate closure of the wounds. The wounds were then flushed with copious amounts of sterile antibiotic solution. Inspected for any remaining soft tissue and osseous debris with none noted. Attention was directed to the lateral aspect of the 5th metatarsal shaft, where with 3-0 Nylon suture of interrupted vertical mattress and horizontal mattress sutures, the wound was closed. Approximately long-term through the wound closure, Osteoset tobramycin impregnated beads were then inserted into the wound around the 5th metatarsal shaft. Closure was then continued with interrupted vertical mattress suture and horizontal mattress suture of 3-0 Nylon. Attention was directed to the plantar aspect of the patient's right forefoot where, utilizing vertical mattress suture of 2-0 Nylon, the wound was coapted and maintained as much as possible. Full closure of the plantar wound was unobtainable due to the size of the wound. Attention was directed to the dorsal aspect of the wound, where at the amputation site of the 3rd and 4th toes, the remaining Osteoset beads were then inserted into the wound and packed around the 3rd and 4th metatarsal shafts. Fluoroscopic studies were obtained and bead placement was noted to be excellent. The dorsal incision was coapted and maintained with combination of interrupted vertical mattress suture and horizontal mattress suture utilizing a 3-0 Nylon. Sterile dressing consisting of 4 x 4s, Esteban, Kerlix, and Coban was applied to the patient's right foot. The patient tolerated surgery and anesthesia well and was taken to the recovery room for further monitoring by the anesthesia department. DICTATING PHYSICIAN: NAM SHANE DPM [id number] PHY#: [id number] ID: [id number] JOB#: [id number] ACCT: [id number] cc:NAM SHANE DPM > MTDD
--- NOTE | 2017-11-21 10:01 | SURGICARE DISCHARGE SUMMARY E ---
[facility] Emergency Department Discharge Summary NAME: ROSA FIGUEROA AGE: 62Y ADMITTED: 11/20/2017 DISCHARGED: 11/20/2017 PROCEDURE PERFORMED: Amputation of 3rd and 4th toes with partial resection of 3rd and 4th metatarsals, excision of wound and partial debridement of the 5th metatarsal shaft, all of the right foot with insertion of antibiotic beads. The patient was later discharged from [facility] with postoperative instructions, wedge shoe, and given follow-up appointment for the next day at the wound care center. DICTATING PHYSICIAN: NAM SHANE DPM [id number] PHY#: [id number] ID: [id number] JOB#: [id number] ACCT: [id number] cc:NAM SHANE DPM >
== END 2017-11-20 16:13 | disposition home or self-care (01) ==
LOC: SC 10:45
PROVIDERS: ATTEND Preventive Medicine Undersea and Hyperbaric Medicine
DX: M86.171 Other acute osteomyelitis, right ankle and foot (principal); B95.2 Enterococcus as the cause of diseases classified elsewhere; B95.1 Streptococcus, group B, as the cause of diseases classified elsewhere; B95.4 Other streptococcus as the cause of diseases classified elsewhere; M86.471 Chronic osteomyelitis with draining sinus, right ankle and foot; I10 Essential (primary) hypertension; D64.9 Anemia, unspecified; E78.5 Hyperlipidemia, unspecified; E11.9 Type 2 diabetes mellitus without complications; Z79.02 Long term (current) use of antithrombotics/antiplatelets; Z79.899 Other long term (current) drug therapy; Z79.84 Long term (current) use of oral hypoglycemic drugs; Z79.82 Long term (current) use of aspirin; Z88.0 Allergy status to penicillin
CPT/HCPCS: 87070; 87205; 82962; 87075; 87077; 87186; 88305 ×2; 88311; 73660; 28810 ×2; 11044; C1713; J2250; J3490 ×7; J1200; J3010; J2704; J1956; J3260; 01480

== ENCOUNTER → 2017-12-17 | Outpatient (CLI) | payer OTHER ==
[2017-12-17 12:33] LABS: ABSOLUTE BASOPHILS # (AUTO) 0.1 10^3/uL (0.0-0.2); ABSOLUTE EOSINOPHILS # (AUTO) 0.4 10^3/uL (0.0-0.6); ABSOLUTE LYMPHOCYTES (AUTO) 3.4 10^3/uL (0.5-4.7); ABSOLUTE MONOCYTES (AUTO) 0.5 10^3/uL (0.1-1.4); ABSOLUTE NEUT (AUTO) 4.7 10^3/uL (1.7-8.2); BASOPHILS % (AUTO) 0.7 % (0-2); EOSINOPHILS % (AUTO) 4.1 % (0-6); HEMATOCRIT 29.7 % (36.0-47.0); HEMOGLOBIN 9.7 g/dL (12.0-15.5); LYMPHOCYTES % (AUTO) 37.7 % (13-45); MEAN CORPUSCULAR HEMOGLOBIN 26.5 pg (27.0-33.4); MEAN CORPUSCULAR HGB CONC 32.7 g/dL (32.0-36.0); MEAN CORPUSCULAR VOLUME 81 fl (80-97); MONOCYTES % (AUTO) 5.3 % (3-13); PLATELET COUNT 379 10^3/uL (150-450); RED BLOOD COUNT 3.66 10^6/uL (3.72-5.28); RED CELL DISTRIBUTION WIDTH 17.1 % (11.5-14.0); SEGMENTED NEUTROPHILS % (AUTO) 52.2 % (42-78); TOTAL CELLS COUNTED % (AUTO) 100 %; WHITE BLOOD COUNT 9.1 10^3/uL (4.0-10.5)
[2017-12-17 13:00] LABS: ALANINE AMINOTRANSFERASE 12 U/L (9-52); ALBUMIN 4.1 g/dL (3.5-5.0); ALKALINE PHOSPHATASE 97 U/L (38-126); ANION GAP 12 (5-19); ASPARTATE AMINO TRANSFERASE 13 U/L (14-36); BILIRUBIN,DIRECT 0.3 mg/dL (0.0-0.4); BILIRUBIN,TOTAL 0.3 mg/dL (0.2-1.3); BLOOD UREA NITROGEN 16 mg/dL (7-20); C-REACTIVE PROTEIN 9.6 mg/L (<10.0); CALCIUM 9.8 mg/dL (8.4-10.2); CARBON DIOXIDE 22 mmol/L (22-30); CHLORIDE 103 mmol/L (98-107); GLUCOSE 146 mg/dL (75-110); POTASSIUM 4.7 mmol/L (3.6-5.0); SODIUM 137.4 mmol/L (137-145)
[2017-12-17 13:21] LABS: ERYTHROCYTE SEDIMENTATION RATE 97 mm/hr (0-30)
--- NOTE | 2017-12-17 14:59 | RADIOLOGY REPORT (SQ) ---
EXAM DESCRIPTION: FOOT RIGHT COMPLETE COMPLETED DATE/TIME: 12/17/2017 11:52 am REASON FOR STUDY: TYPE II DIABETES WITH FOOT ULCER; CHRONIC MULTIFOCAL OSTEOMYELITIS RT ANKLE E11.62 1 TYPE 2 DIABETES MELLITUS WITH FOOT ULCER M86.371 CHRONIC MULTIFOCAL OSTEOMYELITIS, RIGHT ANKLE AN D FO COMPARISON: 11/17/2017 NUMBER OF VIEWS: Three views. TECHNIQUE: AP, lateral and oblique radiographic images acquired of the right foot. LIMITATIONS: None. FINDINGS: MINERALIZATION: Normal. BONES: Amputation of the 3rd through 5th toes. There is somewhat of a moth-eaten appearance of the p roximal 5th metatarsal. JOINTS: No effusions. SOFT TISSUES: No soft tissue swelling. No foreign body. OTHER: No other significant finding. IMPRESSION: Surgical changes. Cannot exclude osteomyelitis in the proximal 5th metatarsal. TECHNICAL DOCUMENTATION: JOB ID: [id number] [employer]- All Rights Reserved Reading location - IP/workstation name: [email or web address]
== END ==
LOC: WC 11:17
PROVIDERS: ATTEND Preventive Medicine Undersea and Hyperbaric Medicine
DX: E11.621 Type 2 diabetes mellitus with foot ulcer (principal); M86.371 Chronic multifocal osteomyelitis, right ankle and foot
CPT/HCPCS: 36415; 80053; 83036; 85025; 85652; 86140

== ENCOUNTER → 2018-01-10 | Outpatient (CLI) | payer OTHER | LOC: OD 09:14 | PROVIDERS: ATTEND Preventive Medicine Undersea and Hyperbaric Medicine | DX: L97.512 Non-pressure chronic ulcer of other part of right foot with fat layer exposed (principal) ==

== ENCOUNTER → 2018-03-07 | Outpatient (CLI) | payer OTHER, BC ==
--- NOTE | 2018-03-07 11:36 | RADIOLOGY REPORT (SQ) ---
EXAM DESCRIPTION: FOOT RIGHT COMPLETE COMPLETED DATE/TIME: 03/07/2018 10:15 am REASON FOR STUDY: NON-PRS CHRONIC ULCER OTH PRT RIGHT FOOT W FAT LAYER EXPOSED L97.512 NON-PRS DIE ATTACHING MACHINE TENDER PATRICIA ULCER OTH PRT RIGHT FOOT W FAT LAYER COMPARISON: 01/10/2018 NUMBER OF VIEWS: Three views. TECHNIQUE: AP, lateral and oblique radiographic images acquired of the right foot. LIMITATIONS: None. FINDINGS: MINERALIZATION: Normal. BONES: Amputation of the 3rd through 5th digits. The 3rd and 4th from the level of the distal 3rd an d 4th metatarsals. The 5th from the level of the proximal 5th metatarsal. It appears that the bone has been debrided since the study 01/10/2018. No new bone destruction is present. JOINTS: No effusions. SOFT TISSUES: No soft tissue swelling. No foreign body. OTHER: No other significant finding. IMPRESSION: Surgical changes. No acute osteomyelitis is appreciated. TECHNICAL DOCUMENTATION: JOB ID: [id number] [employer]- All Rights Reserved Reading location - IP/workstation name: [email or web address]
== END ==
LOC: OD 09:59
PROVIDERS: ATTEND Preventive Medicine Undersea and Hyperbaric Medicine
DX: L97.512 Non-pressure chronic ulcer of other part of right foot with fat layer exposed (principal)

== ENCOUNTER → 2018-06-03 | Outpatient (CLI) | payer OTHER ==
--- NOTE | 2018-06-03 10:17 | WOMENS IMAGING REPORT ---
EXAM DESCRIPTION: 3D SCREENING MAMMO BILAT COMPLETED DATE/TIME: 06/03/2018 9:42 am REASON FOR STUDY: ROUTINE 3D BILATERAL SCREENING,Z12.31 Z12.31 ENCNTR SCREEN MAMMOGRAM FOR MALIGNAN T NEOPLASM OF KEANU COMPARISON: 2012- 2017 TECHNIQUE: Standard craniocaudal and mediolateral oblique views of each breast recorded using digita l acquisition and breast tomosynthesis. LIMITATIONS: None. FINDINGS: Findings present which are benign by mammographic criteria. No suspicious masses, calcifi cations or architectural distortion. Pertinent benign findings: Vascular calcifications. Read with the assistance of CAD. .[facility] - R2 Cenova Version 1.3 .[facility] Imaging - R2 Cenova Version 2.1 .[facility] Imaging - R2 Cenova Version 2.4 .[facility] - R2 Cenova Version 2.4 .[facility] - R2 [employer] Version 9.2 Benign mammographic findings may include one or more of the following: Smooth masses, popcorn/rim/co arse calcifications, asymmetries, post-procedure changes, and lesions with long-standing stability. IMPRESSION: BENIGN MAMMOGRAPHIC FINDINGS. BIRADS 2 BREAST DENSITY: b. There are scattered areas of fibroglandular density. BIRAD: 2 BENIGN FINDING(S) RECOMMENDATION: RECOMMENDATION: ROUTINE SCREENING COMMENT: The patient has been notified of the results by letter per SA requirements. Additional no tification policies are in place for contacting patient with suspicious or incomplete findings. Quality ID #225: The [employer] recommends an annual screening mammogram for women aged 40 years or over. This facility utilizes a reminder system to ensure that all patients receive reminder letters, and/or direct phone calls for appointments. This includes reminders for routine scr eening mammograms, diagnostic mammograms, or other Breast Imaging Interventions when appropriate. Th is patient will be placed in the appropriate reminder system. The [employer] (ACR) has developed recommendations for screening MRI of the breast s in certain patient populations, to be used in conjunction with mammography. Breast MRI surveillanc e may be appropriate for women with more than 20% lifetime risk of developing breast cancer as deter mined by genetic testing, significant family history of the disease, or history of mantle radiation f or Hodgkins Disease. ACR Practice Guidelines 2008. DBT Technology DBT is a type of tomographic mammography. With conventional mammography, overlapping breast tissue ma y make lesions difficult to detect, even with good compression. DBT uses an x-ray tube that rotates a round the breast, taking images at different angles. These images are then combined to create thin sl ices of the breast that the radiologist can view as a 3D reconstruction. The Bearch unit can perform full-field digital mammograms (2D imaging); or DBT (3D imaging); or both, in a combination mode that quickly performs both the mammogram and the tomosynthesis scan while the breast is still compressed. PQRS 6045F: Fluoroscopic imaging is not utilized for breast tomosynthesis. TECHNICAL DOCUMENTATION: FINDING NUMBER: (1) ASSESSMENT: (1) JOB ID: [id number] [employer]- All Rights Reserved Reading location - IP/workstation name: [email or web address]
== END ==
LOC: WI 09:06
PROVIDERS: ATTEND Specialist
DX: Z12.31 Encounter for screening mammogram for malignant neoplasm of breast (principal)
CPT/HCPCS: 77063; 77067

== ENCOUNTER → 2019-04-10 | Outpatient (CLI) | payer OTHER ==
[2019-04-10 09:11] LABS: ABSOLUTE BASOPHILS # (AUTO) 0.1 10^3/uL (0.0-0.2); ABSOLUTE EOSINOPHILS # (AUTO) 0.3 10^3/uL (0.0-0.6); ABSOLUTE LYMPHOCYTES (AUTO) 2.8 10^3/uL (0.5-4.7); ABSOLUTE MONOCYTES (AUTO) 0.4 10^3/uL (0.1-1.4); ABSOLUTE NEUT (AUTO) 3.9 10^3/uL (1.7-8.2); BASOPHILS % (AUTO) 0.9 % (0-2); HEMATOCRIT 32.1 % (36.0-47.0); HEMOGLOBIN 10.7 g/dL (12.0-15.5); MEAN CORPUSCULAR HEMOGLOBIN 28.1 pg (27.0-33.4); MEAN CORPUSCULAR HGB CONC 33.4 g/dL (32.0-36.0); MEAN CORPUSCULAR VOLUME 84 fl (80-97); MONOCYTES % (AUTO) 5.9 % (3-13); PLATELET COUNT 252 10^3/uL (150-450); RED BLOOD COUNT 3.82 10^6/uL (3.72-5.28); RED CELL DISTRIBUTION WIDTH 15.7 % (11.5-14.0); SEGMENTED NEUTROPHILS % (AUTO) 52.2 % (42-78); TOTAL CELLS COUNTED % (AUTO) 100 %; WHITE BLOOD COUNT 7.5 10^3/uL (4.0-10.5)
[2019-04-10 09:41] LABS: ALBUMIN 3.9 g/dL (3.5-5.0); ALKALINE PHOSPHATASE 83 U/L (38-126); ANION GAP 10 (5-19); ASPARTATE AMINO TRANSFERASE 21 U/L (14-36); BILIRUBIN,DIRECT 0.3 mg/dL (0.0-0.4); BILIRUBIN,TOTAL 0.4 mg/dL (0.2-1.3); BLOOD UREA NITROGEN 15 mg/dL (7-20); CALCIUM 9.3 mg/dL (8.4-10.2); CARBON DIOXIDE 27 mmol/L (22-30); CHLORIDE 104 mmol/L (98-107); GLUCOSE 205 mg/dL (75-110); POTASSIUM 4.4 mmol/L (3.6-5.0); TOTAL PROTEIN 7.2 g/dL (6.3-8.2)
--- NOTE | 2019-04-10 10:32 | EKG REPORT ---
SEVERITY:- NORMAL ECG - SINUS RHYTHM : Confirmed by: Mahad Arango MD 10-Apr-2019 10:31:35
--- NOTE | 2019-04-10 12:36 | RADIOLOGY REPORT (SQ) ---
EXAM DESCRIPTION: CHEST PA/LATERAL COMPLETED DATE/TIME: 04/10/2019 9:07 am REASON FOR STUDY: PRE-OP COMPARISON: 12/03/2014 EXAM PARAMETERS: NUMBER OF VIEWS: two views TECHNIQUE: Digital Frontal and Lateral radiographic views of the chest acquired. RADIATION DOSE: NA LIMITATIONS: none FINDINGS: LUNGS AND PLEURA: No opacities, masses or pneumothorax. No pleural effusion. MEDIASTINUM AND HILAR STRUCTURES: No masses or contour abnormalities. HEART AND VASCULAR STRUCTURES: Heart normal size. No evidence for failure. BONES: No acute findings. HARDWARE: None in the chest. OTHER: No other significant finding. IMPRESSION: NO SIGNIFICANT RADIOGRAPHIC FINDING IN THE CHEST. TECHNICAL DOCUMENTATION: JOB ID: [id number] [employer]- All Rights Reserved Reading location - IP/workstation name: [email or web address]
== END ==
LOC: OD 08:31
PROVIDERS: ATTEND Surgery
DX: E66.01 Morbid (severe) obesity due to excess calories (principal)
CPT/HCPCS: 36415; 71046; 80053; 84443; 85025; 93005; 93010

== ENCOUNTER → 2019-10-14 | Outpatient (CLI) | payer OTHER ==
[2019-10-14 12:12] VITALS: BP 142/70
--- NOTE | 2019-10-14 12:12 | ER [facility] ASSESSMENT REPORT ---
Intake - In the Last 14 days Have you traveled outside [place]?: No Have you been in close contact with someone CONFIRMED: No Worked in Healthcare?: No - Symptoms Subjective Fever([place] feverish): No Chills: No Muscule Aches: No Runny Nose: Yes Sore Throat: No Cough (New or worsening chronic cough): No Shortness of breath: No Nausea or Vomiting: No Headache: No Abdominal Pain: No Diarrhea(3 or more loose stools in last 24 hours): No - Do you have any of the following Chronic lung disease: Asthma or emphysema or COPD: No Cystic Fibrosis: No Diabetes: Yes High Blood Pressure: No Cardiovascular Disease: No Chronic Kidney Disease: No Chronic Liver Disease: No Chronic blood disorder like Sickle Cell Disease: No Weak immune system due to disease or medication: No Neurologic condition that limits movement: No Developmental delay - Moderate to Severe: No Recent (within past 2 weeks) or current : No Morbid Obesity (>100 pounds over ideal weight): No - Objective Temperature: 97.6 F Pulse Rate: 71 Respiratory Rate: 20 Blood Pressure: 142/70 O2 Sat by Pulse Oximetry: 97 Objective: Given above, testing performed: If Testing Performed: Test Specimen Type Sent to General - General Information source: Patient Notes: Presents to the [facility] for screening for the coronavirus. Patient reports being around someone who was around somebody else who did test positive. Patient only complains of runny nose but has underlying diabetes and would like to be screened today. Patient is a former smoker. - Related Data Allergies/Adverse Reactions: Penicillins Allergy (Severe, Verified 02/12/15 15:04) Hives atorvastatin calcium [From Lipitor] Allergy (Verified 12/03/14 17:45) rosuvastatin calcium [From Crestor] Adverse Reaction (Intermediate, Verified 12/03/14 14:19) Passed out Past Medical History - General Information source: Patient - Social History Smoking Status: Former Smoker Family History: Reviewed & Not Pertinent - Past Medical History Cardiac Medical History: Reports: Hx Hypertension - MEDICATED Denies: Hx Coronary Artery Disease, Hx Heart Attack Pulmonary Medical History: Denies: Hx Asthma, Hx Bronchitis, Hx COPD, Hx Pneumonia Neurological Medical History: Denies: Hx Cerebrovascular Accident, Hx Seizures Endocrine Medical History: Reports: Hx Diabetes Mellitus Type 2 GI Medical History: Denies: Hx Hepatitis, Hx Hiatal Hernia, Hx Ulcer Musculoskeletal Medical History: Denies Hx Arthritis Infectious Medical History: Denies: Hx Hepatitis Past Surgical History: Reports: Hx Cholecystectomy, Hx Hysterectomy, Hx Orthopedic Surgery Physical Exam - Notes Notes: Full physical exam could not be performed due to covid 19 isolation protocols. Constitutional: Nontoxic appearance, no acute distress Eyes: Nonicteric, extraocular movements intact, sclera clear ENT: Rhinorrhea, posterior pharynx clear Cardiovascular: Rhythm regular, no JVD Respiratory: Sounds clear bilaterally, nonlabored breathing, no use of accessory muscles, no tachypnea Gastrointestinal: Abdomen not distended Muculoskeletal: Moves all extremities well, normal gait Skin: Normal color Neuro: Awake alert oriented, normal speech Psych: Normal mood and affect Diagnostic Results Laboratory Results: The patient was evaluated during the global Covid 19 pandemic, and that diagnosis was suspected/considered upon their initial presentation. Their evaluation, treatment and testing was consistent with current guidelines for patients who present with complaints or symptoms that may be related to Covid 19. Patient presents with upper respiratory symptoms worrisome for possible Covid 19. Patient does not have emergency worrying symptoms such as difficulty breathing, shortness of breath, chest pain, pressure, confusion or cyanosis. Patient appears suitable for discharge as vital signs are stable and patient is nontoxic in appearance. Good return precautions have been discussed with patient, patient verbalized understanding and is agreeable with discharge plan of care at this time. Patient Education/Counseling Counseling/Education: Patient was provided with discharge information including: As a person under investigation for Covid 19, the [place] department of Health and Human Services, division of public health advises you to adhere to the following guidance until your test results are reported to you. If your test result is positive, you will receive additional information from your provider and your local health department at that time. Remain at home until you are cleared by the health provider or public health authorities. Keep a log of visitors to your home, notify any visitors to your home of your isolation status. If you plan to move to a new address or leave the county, notify the local health department in your County. Call your doctor or seek care if you have an urgent medical need. Before seeking medical care, call ahead to get instructions from the provider before arriving at the medical office clinic or hospital. Notify them that you are being tested for the virus that causes Covid 19 so that arrangements can be made, as necessary, to prevent transmission to others in the healthcare setting. Next, notify the local health department in your county. If a medical emergency arises and you need to call 911, inform the first responders that you are being tested for the virus that causes Covid 19. Next, notify the local health department in your county. RDC Discharge - Discharge Clinical Impression: Encounter for screening laboratory testing for COVID-19 virus Condition: Stable Disposition: Home; Selfcare
[2019-10-14 12:55] LABS: A TYPE INFLUENZA AG NEGATIVE (NEGATIVE); B INFLUENZA AG NEGATIVE (NEGATIVE)
== END ==
LOC: RDC 11:17
PROVIDERS: ATTEND Nurse Practitioner Family
DX: Z20.828 Contact with and (suspected) exposure to other viral communicable diseases (principal); R09.89 Other specified symptoms and signs involving the circulatory and respiratory systems; I10 Essential (primary) hypertension; E11.9 Type 2 diabetes mellitus without complications; Z87.891 Personal history of nicotine dependence; Z88.0 Allergy status to penicillin; Z88.8 Allergy status to other drugs, medicaments and biological substances
CPT/HCPCS: 87070; 87880; 87635; 87804; C9803; 99201; 99211

== ENCOUNTER → 2019-12-01 | Outpatient (CLI) | payer OTHER ==
--- NOTE | 2019-12-01 13:35 | RADIOLOGY REPORT (SQ) ---
EXAM DESCRIPTION: FOOT LEFT COMPLETE IMAGES COMPLETED DATE/TIME: 12/01/2019 12:01 pm REASON FOR STUDY: PAIN IN LEFT FOOT,EXOSTOSIS OF EXTERNAL CANAL, BILATERAL M79.672 PAIN IN LEFT RAUL T H61.813 EXOSTOSIS OF EXTERNAL CANAL, BILATERAL COMPARISON: 12/03/2014 NUMBER OF VIEWS: Three views. TECHNIQUE: AP, lateral and oblique radiographic images acquired of the left foot. LIMITATIONS: None. FINDINGS: MINERALIZATION: Normal. BONES: No acute fracture or dislocation. No worrisome bone lesions. JOINTS: Degenerative changes at the first and second metatarsal joints with deformity maybe related prior remote injury. Flexion deformity suggested at the second through the fifth toes. Mild deformity distal fibula maybe related prior remote injury. Retrocalcaneal spur. Accessory cubo id ossicle, normal anatomic variant. SOFT TISSUES: Multiple calcified phleboliths in the soft tissues distal left lower extremity. OTHER: No other significant finding. IMPRESSION: 1. No acute osseous findings. 2. Degenerative changes involving the forefoot. 3. Additional findings as above. TECHNICAL DOCUMENTATION: JOB ID: [id number] 2010 [employer]- All Rights Reserved Reading location - IP/workstation name: [email or web address]
== END ==
LOC: OD 11:49
PROVIDERS: ATTEND Podiatrist Foot & Ankle Surgery
DX: M79.672 Pain in left foot (principal); H61.813 Exostosis of external canal, bilateral

== ENCOUNTER → 2020-01-02 | Outpatient (CLI) | payer OTHER ==
--- NOTE | 2020-01-02 10:19 | WOMENS IMAGING REPORT ---
EXAM DESCRIPTION: 3D SCREENING MAMMO BILAT IMAGES COMPLETED DATE/TIME: 01/02/2020 9:57 am REASON FOR STUDY: Z12.31 ENCOUNTER FOR SCREENING MAMMOGRAM FOR MALIGNANT NEOPLASM OF BREAST Z12.31 ENCNTR SCREEN MAMMOGRAM FOR MALIGNANT NEOPLASM OF [place] COMPARISON: Priors dating back to 2011. EXAM PARAMETERS: Views: Standard craniocaudal and mediolateral oblique views of each breast recorded using digital acquisition and breast tomosynthesis. Read with the assistance of CAD. .[facility] - R2 [employer] Engineer Version 9.2 LIMITATIONS: None. FINDINGS: No suspicious masses, suspicious calcifications or architectural distortion. No areas of c oncern. IMPRESSION: NEGATIVE MAMMOGRAM. BIRADS 1. BREAST DENSITY: b. There are scattered areas of fibroglandular density. BIRAD: ASSESSMENT: 1 NEGATIVE RECOMMENDATION: ROUTINE SCREENING COMMENT: The patient has been notified of the results by letter per MQSA requirements. Additional no tification policies are in place for contacting patient with suspicious or incomplete findings. Quality ID #[id number]: The [employer] recommends an annual screening mammogram for women aged 40 years or over. This facility utilizes a reminder system to ensure that all patients receive reminder letters, and/or direct phone calls for appointments. This includes reminders for routine scr eening mammograms, diagnostic mammograms, or other Breast Imaging Interventions when appropriate. Th is patient will be placed in the appropriate reminder system. TECHNICAL DOCUMENTATION: FINDING NUMBER: (1) ASSESSMENT: (1) JOB ID: [id number] 2010 [email or web address]- All Rights Reserved Reading location - IP/workstation name: [email or web address]
== END ==
LOC: WI 09:32
PROVIDERS: ATTEND Specialist
DX: Z12.31 Encounter for screening mammogram for malignant neoplasm of breast (principal)
CPT/HCPCS: 77063; 77067

== ENCOUNTER → 2020-02-13 | Outpatient (CLI) | payer OTHER ==
--- NOTE | 2020-02-13 13:04 | RADIOLOGY REPORT (SQ) ---
EXAM DESCRIPTION: MRI LUMBAR SPINE WITHOUT IMAGES COMPLETED DATE/TIME: 02/13/2020 8:39 am REASON FOR STUDY: M54.16 RADICULOPATHY, LUMBAR REGION M54.16 RADICULOPATHY, LUMBAR REGION COMPARISON: None. TECHNIQUE: Sagittal and Axial imaging includes T1, T2, STIR and gradient echo sequences. Coronal T2/ HASTE imaging. LIMITATIONS: None. FINDINGS: VISUALIZED UPPER ABDOMEN: Limited evaluation. No acute or suspicious findings suggested. SEGMENTATION: No transitional anatomy. The lowest well-developed disc space is labeled L5-S1. ALIGNMENT: Anatomic. VERTEBRAE: Intact. BONE MARROW: Normal. No marrow replacement or reactive changes. DISC SIGNAL: Normal. No significant abnormal signal or loss of height. POSTERIOR ELEMENTS: Generally intact. No pars defect evident. HARDWARE: None in the spine. CORD AND CONUS: Normal in size and signal intensity. Conus at the T12 level. SOFT TISSUES: No aortic aneurysm seen. No bulky retroperitoneal adenopathy or mass. No paraspinal mas s or fluid. L1-L2: No significant spinal stenosis or exit foraminal stenosis. L2-L3: Mild circumferential disc bulge. Mild hypertrophic facet and ligament changes. Mild central canal stenosis. L3-L4: Circumferential disc bulge with facet and ligament hypertrophy. Moderate central canal stenos is. Mild foraminal stenoses. L4-L5: Mild circumferential disc bulge. Facet and ligament hypertrophy. Mild central canal stenosis . Mild foraminal stenoses. L5-S1: Midline disc protrusion. Facet and ligament hypertrophy. Significant central canal stenosis. Bilateral foraminal stenoses. LOWER THORACIC: Incompletely imaged. No stenosis seen. SACRUM: Visualized upper sacrum intact. OTHER: No other significant findings. IMPRESSION: Disc changes at multiple levels as described. Facet arthropathy at multiple levels as d escribed. Most significant findings are at L5-S1 with the midline disc protrusion and facet arthropa thy results in significant central canal and bilateral foraminal stenoses. TECHNICAL DOCUMENTATION: JOB ID: [id number] [employer]- All Rights Reserved Reading location - IP/workstation name: [email or web address]
== END ==
LOC: RAD 07:32
PROVIDERS: ATTEND Internal Medicine
DX: M54.16 Radiculopathy, lumbar region (principal)
CPT/HCPCS: 72148

== ENCOUNTER → 2020-04-14 | Outpatient (CLI) | payer OTHER ==
--- NOTE | 2020-04-14 13:10 | ER RDC ASSESSMENT REPORT ---
Intake - In the Last 14 days Have you traveled outside [place]?: No Have you been in close contact with someone CONFIRMED: No Worked in Healthcare?: No - Symptoms Subjective Fever([place] feverish): No Chills: No Muscule Aches: No Runny Nose: Yes Sore Throat: No Cough (New or worsening chronic cough): No Shortness of breath: No Nausea or Vomiting: No Headache: Yes Abdominal Pain: No Diarrhea(3 or more loose stools in last 24 hours): Yes - Do you have any of the following Chronic lung disease: Asthma or emphysema or COPD: No Cystic Fibrosis: No Diabetes: Yes High Blood Pressure: Yes Cardiovascular Disease: Yes Chronic Kidney Disease: No Chronic Liver Disease: No Chronic blood disorder like Sickle Cell Disease: No Weak immune system due to disease or medication: No Neurologic condition that limits movement: No Developmental delay - Moderate to Severe: No Recent (within past 2 weeks) or current : No Morbid Obesity (>100 pounds over ideal weight): No - Objective Temperature: 98.7 F Pulse Rate: 68 Respiratory Rate: 17 Blood Pressure: 140/67 O2 Sat by Pulse Oximetry: 99 Objective: Given above, testing performed: If Testing Performed: Test Specimen Type Sent to General - General Information source: Patient Notes: Patient presents to the [facility] for screening for coronavirus. - Related Data Allergies/Adverse Reactions: Penicillins Allergy (Severe, Verified 02/12/15 15:04) Hives atorvastatin calcium [From Lipitor] Allergy (Verified 12/03/14 17:45) rosuvastatin calcium [From Crestor] Adverse Reaction (Intermediate, Verified 12/03/14 14:19) Passed out Past Medical History - General Information source: Patient - Social History Smoking Status: Never Smoker Family History: Reviewed & Not Pertinent - Past Medical History Cardiac Medical History: Reports: Hx Hypercholesterolemia, Hx Hypertension Denies: Hx Coronary Artery Disease, Hx Heart Attack Pulmonary Medical History: Denies: Hx Asthma, Hx Bronchitis, Hx COPD, Hx Pneumonia Neurological Medical History: Denies: Hx Cerebrovascular Accident, Hx Seizures Endocrine Medical History: Reports: Hx Diabetes Mellitus Type 2 GI Medical History: Denies: Hx Hepatitis, Hx Hiatal Hernia, Hx Ulcer Musculoskeletal Medical History: Denies Hx Arthritis Infectious Medical History: Denies: Hx Hepatitis Past Surgical History: Reports: Hx Bowel Surgery, Hx Cholecystectomy, Hx Hysterectomy, Hx Orthopedic Surgery Physical Exam - Notes Notes: The patient was evaluated during the global Covid 19 pandemic, and that diagnosis was suspected/considered upon their initial presentation. Their evaluation and testing was consistent with current guidelines for patients who present with complaints or symptoms that may be related to Covid 19. Full physical exam could not be performed due to covid 19 isolation protocols. Constitutional: Nontoxic appearance, no acute distress Eyes: Nonicteric, sclera clear ENT: Posterior pharynx without erythema or exudates Cardiovascular: Heart rate and rhythm regular Respiratory: Breath sounds clear bilaterally, nonlabored breathing, no use of accessory muscles, no tachypnea Gastrointestinal: Abdomen not distended Muculoskeletal: Moves all extremities well Skin: Normal color Neuro: Awake alert oriented, normal speech Psych: Normal mood and affect Diagnostic Results Laboratory Results: Patient presents with symptoms worrisome for possible Covid 19. Patient does not have emergency worrying symptoms such as difficulty breathing, shortness of breath, chest pain, pressure, confusion or cyanosis. Patient appears suitable for discharge as vital signs are stable and patient is nontoxic in appearance. Good return precautions have been discussed with patient, patient verbalized understanding and is agreeable with discharge plan of care at this time. Patient Education/Counseling Counseling/Education: Patient was provided with discharge information including: As a person under investigation for Covid 19, the [place] department of Health and Human Services, division of public health advises you to adhere to the following guidance until your test results are reported to you. If your test result is positive, you will receive additional information from your provider and your local health department at that time. Remain at home until you are cleared by the health provider or public health authorities. Keep a log of visitors to your home, notify any visitors to your home of your isolation status. If you plan to move to a new address or leave the county, notify the local health department in your County. Call your doctor or seek care if you have an urgent medical need. Before seeking medical care, call ahead to get instructions from the provider before arriving at the medical office clinic or hospital. Notify them that you are being tested for the virus that causes Covid 19 so that arrangements can be made, as necessary, to prevent transmission to others in the healthcare setting. Next, notify the local health department in your county. If a medical emergency arises and you need to call 911, inform the first responders that you are being tested for the virus that causes Covid 19. Next, notify the local health department in your county. RDC Discharge - Discharge Clinical Impression: Encounter for screening laboratory testing for COVID-19 virus Condition: Stable Disposition: Home; Selfcare
[2020-04-14 13:29] VITALS: BP 140/67
[2020-04-14 15:09] LABS: A TYPE INFLUENZA AG NEGATIVE (NEGATIVE); B INFLUENZA AG NEGATIVE (NEGATIVE)
== END ==
LOC: RDC 12:52
PROVIDERS: ATTEND Nurse Practitioner Family
DX: Z20.828 Contact with and (suspected) exposure to other viral communicable diseases (principal); R09.89 Other specified symptoms and signs involving the circulatory and respiratory systems; R51.9 Headache, unspecified; R19.7 Diarrhea, unspecified; I10 Essential (primary) hypertension; E78.00 Pure hypercholesterolemia, unspecified; E11.9 Type 2 diabetes mellitus without complications; Z88.0 Allergy status to penicillin; Z88.8 Allergy status to other drugs, medicaments and biological substances
CPT/HCPCS: 87070; 87880; 87804; 99211 ×2; U0003; C9803; 87635